=== PATIENT | male | born 2000 | race Caucasian/White ===

== ENCOUNTER 2024-11-04 22:45 | Emergency (ER) | payer SELFPAY ==
[~2024-11-04] VITALS: Ht 167.6 cm; Wt 63.5 kg
[2024-11-05] MEDS ORDERED: LIDOCAINE 0.5%-EPI 1:200,000 50 ML VIAL ONE
[2024-11-05 01:42] VITALS: BP 121/68; TEMP 98; O2SAT 100
== END 2024-11-05 01:42 | disposition home or self-care (01) ==
LOC: ER 22:51
DX: S01.01XA Laceration without foreign body of scalp, initial encounter (principal); Z60.2 Problems related to living alone; W22.03XA Walked into furniture, initial encounter; Y93.89 Activity, other specified; Y92.89 Other specified places as the place of occurrence of the external cause; Y99.8 Other external cause status
CPT/HCPCS: 99282; J3490